=== PATIENT | male | born 1965 | race African-American/Black ===

== ENCOUNTER 2018-10-24 14:34 | Emergency (ER) | payer BC, MEDICAID, OTHER ==
[~2018-10-24] VITALS: Ht 175.3 cm; Wt 68.0 kg
[~2018-10-24 14:34] MED LIST: no home meds
[2018-10-24] MEDS ORDERED: UNOBMED (14:41)
--- NOTE | 2018-10-24 14:47 | NUR ---
ED Nurse Note: Pt came in from home due to R sided chest pain that radiates to L shoulder x 3 days, also c/o bilateral foot swelling, non-pitting. Pain 8/10 [place]. No complaint of SOB [place]. HR 103, ERMD aware. AOx4, other VSS. Will cont to monitor.
--- NOTE | 2018-10-24 14:55 | NUR ---
ED Nurse Note: Blood drawn and sent to lab.
--- NOTE | 2018-10-24 14:56 | NUR ---
ED Nurse Note: material handling technician notified of order. stated she will be here in 25 min, as she's with another pt now. md and primary rn aware.
[2018-10-24 15:02] VITALS: BP 114/74
--- NOTE | 2018-10-24 15:18 | Emergency Room Report ---
History of Present Illness General Chief Complaint: Chest Pain Source: Patient, Medical Record Present Illness HPI 53-year-old male presents ED for evaluation. Patient is complaining of swelling to his legs and chest pain for the last 3 days. Chest pain was sometimes right-sided sometimes left-sided, dull, 3 out of 10, nonradiating. It comes and goes. Denies chest pain at this time. Denies any shortness of breath. States swelling started at the same time. Denies fevers chills. Notes multiple hernández on his legs and abdomen. Believes he was bitten by some insect. Denies any known food or drug allergies. No other aggravating relieving factors. Denies any other associated symptoms Allergies: Coded Allergies: PENICILLINS (Verified Allergy, Mild, 04/21/13) PER RN DANIEL, PT REPORTS HE HAS TOLERATED AMOXIL AND KEFLEX IN THE PAST Patient History Past Medical History: seizures Past Surgical History: none Pertinent Family History: none Social History: Denies: smoking, alcohol use, drug use Immunizations: UTD Reviewed Nursing Documentation: PMH: Agreed; PSxH: Agreed Nursing Documentation-PMH Past Medical History: No History, Except For Hx Cardiac Problems: No Hx Asthma: No - CHILDHOOD ASTHMA Hx Cancer: No Hx Gastrointestinal Problems: No Hx Neurological Problems: No Hx Seizures: Yes Review of Systems All Other Systems: negative except mentioned in HPI Physical Exam Vital Signs Date Time Temp Pulse Resp B/P (MAP) Pulse Ox O2 Delivery O2 Flow Rate FiO2 10/24/18 14:38 97.9 98 19 98 Room Air 10/24/18 15:02 114/74 Sp02 EP Interpretation: reviewed, normal General Appearance: no apparent distress, alert, GCS 15, non-toxic Head: normocephalic, atraumatic Eyes: bilateral eye normal inspection, bilateral eye PERRL ENT: hearing grossly normal, normal pharynx, no angioedema, normal voice Neck: full range of motion, supple/symm/no masses Respiratory: chest non-tender, lungs clear, normal breath sounds, speaking full sentences Cardiovascular #1: regular rate, rhythm, no edema Cardiovascular #2: 2+ carotid (R), 2+ carotid (L), 2+ radial (R), 2+ radial (L) , 2+ dorsalis pedis (R), 2+ dorsalis pedis (L) Gastrointestinal: normal bowel sounds, non tender, soft, non-distended, no guarding, no rebound Rectal: deferred Genitourinary: normal inspection, no CVA tenderness Musculoskeletal: back normal, gait/station normal, normal range of motion, swelling - 2+ pitting edema b/l LEs Neurologic: alert, oriented x3, responsive, motor strength/tone normal, sensory intact, speech normal Psychiatric: judgement/insight normal, memory normal, mood/affect normal, no suicidal/homicidal ideation Reflexes: 3+ bicep (R), 3+ bicep (L), 3+ tricep (R), 3+ tricep (L), 3+ knee (R) , 3+ knee (L) Skin: normal color, warm/dry, well hydrated, rash - rash with erythema to lower extremities, lower abdomen Lymphatic: no adenopathy Medical Decision Making Diagnostic Impression: Primary Impression: Cellulitis of both lower extremities Additional Impression: Rash ER Course Hospital Course 53-year-old M presents to ED with bilateral leg swelling, rash, subjective chest pain Differential diagnoses include: Cellulitis, DVT, ACS, CHF Clinical course Patient placed on stretcher. After initial history and physical I ordered labs , EKG, CXR, venous duplex labs reviewed - no leukocytosis, Hb/Hct stable, no electrolyte abnormalities, BNP ok, trop negative EKG - NSR, no acute ischemic changes interpreted by me CXR - no acute process venous duplex no evidence of DVT Discussed findings with patient. Likely cellulitis secondary to insect bites. No signs of congestive heart failure. Patient afebrile, nontoxic appearing. Stable vitals. We'll discharge home with antibiotics. Safe for discharge or close outpatient follow-up. States he has a PMD Diagnosis - cellulitis of lower extremities Stable and discharged to home with prescription for clindamycin. Benadryl. Follow-up with PMD. Return to ED if symptoms recur or worsen Labs Test 10/24/18 15:00 White Blood Count 3.5 K/UL (4.8-10.8) Red Blood Count 3.71 M/UL (4.70-6.10) Hemoglobin 13.7 G/DL (14.2-18.0) Hematocrit 37.7 % (42.0-52.0) Mean Corpuscular Volume 102 FL (80-99) Mean Corpuscular Hemoglobin 37.0 PG (27.0-31.0) Mean Corpuscular Hemoglobin Concent 36.5 G/DL (32.0-36.0) Red Cell Distribution Width 14.5 % (11.6-14.8) Platelet Count 235 K/UL (150-450) Mean Platelet Volume 4.7 FL (6.5-10.1) Neutrophils (%) (Auto) 38.8 % (45.0-75.0) Lymphocytes (%) (Auto) 46.1 % (20.0-45.0) Monocytes (%) (Auto) 11.2 % (1.0-10.0) Eosinophils (%) (Auto) 1.2 % (0.0-3.0) Basophils (%) (Auto) 2.8 % (0.0-2.0) Sodium Level 143 MMOL/L (136-145) Potassium Level 4.0 MMOL/L (3.5-5.1) Chloride Level 105 MMOL/L (98-107) Carbon Dioxide Level 28 MMOL/L (21-32) Anion Gap 10 mmol/L (5-15) Blood Urea Nitrogen 8 mg/dL (7-18) Creatinine 0.5 MG/DL (0.55-1.30) Estimat Glomerular Filtration Rate > 60 mL/min (>60) Glucose Level 93 MG/DL (74-106) Calcium Level 8.3 MG/DL (8.5-10.1) Total Bilirubin 0.2 MG/DL (0.2-1.0) Aspartate Amino Transf (AST/SGOT) 53 U/L (15-37) Alanine Aminotransferase (ALT/SGPT) 35 U/L (12-78) Alkaline Phosphatase 138 U/L (46-116) Total Creatine Kinase 111 U/L (26-308) Creatine Kinase MB 1.0 NG/ML (0.0-3.6) Creatine Kinase MB Relative Index 0.9 Troponin I 0.000 ng/mL (0.000-0.056) Pro-B-Type Natriuretic Peptide 38 pg/mL (0-125) Total Protein 7.4 G/DL (6.4-8.2) Albumin 3.4 G/DL (3.4-5.0) Globulin 4.0 g/dL Albumin/Globulin Ratio 0.9 (1.0-2.7) EKG Diagnostic Results Rate: normal Rhythm: NSR ST Segments: no acute changes ASA given to the pt in ED: No Rhythm Strip Diag. Results EP Interpretation: yes Rhythm: NSR, no PVC's, no ectopy Chest X-Ray Diagnostic Results Chest X-Ray Diagnostic Results : Chest X-Ray Ordered: Yes # of Views/Limited/Complete: 1 View Indication: Chest Pain EP Interpretation: Yes Interpretation: no consolidation, no effusion, no pneumothorax, no acute cardiopulmonary disease Impression: No acute disease Electronically Signed by: Electronically signed by Buck Najera MD CT/MRI/US Diagnostic Results CT/MRI/US Diagnostic Results : Imaging Test Ordered: Venous Duplex bilateral LEs Impression no evidence of DVT. edema noted Last Vital Signs Date Time Temp Pulse Resp B/P (MAP) Pulse Ox O2 Delivery O2 Flow Rate FiO2 10/24/18 15:02 97.9 94 20 114/74 98 Room Air Disposition: HOME, SELF-CARE Condition: Stable Scripts Diphenhydramine Hcl* (DIPHENHYDRAMINE HCL*) 25 Mg Capsule 25 MG ORAL Q6H PRN for Itching, #30 CAP 0 Refills Prov: Buck Najera MD 10/24/18 Clindamycin Hcl (CLINDAMYCIN HCL) 300 Mg Capsule 300 MG ORAL THREE TIMES A DAY, #21 CAP Prov: Buck Najera MD 10/24/18 Buck Najera MD October 24, 2018 15:18
[2018-10-24 15:27] LABS: ANION GAP 10 mmol/L (5-15); BLOOD UREA NITROGEN 8 mg/dL (7-18); CALCIUM 8.3 MG/DL (8.5-10.1); CARBON DIOXIDE 28 MMOL/L (21-32); CHLORIDE 105 MMOL/L (98-107); CREATININE 0.5 MG/DL (0.55-1.30); SODIUM 143 MMOL/L (136-145)
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
[2018-10-24 15:41] LABS: ALANINE AMINOTRANSFERASE 35 U/L (12-78); ALBUMIN 3.4 G/DL (3.4-5.0); ALBUMIN/GLOBULIN RATIO 0.9 (1.0-2.7); ALKALINE PHOSPHATASE 138 U/L (46-116); ASPARTATE AMINO TRANSFERASE 53 U/L (15-37); BILIRUBIN,TOTAL 0.2 MG/DL (0.2-1.0); CREATINE KINASE 111 U/L (26-308)
[2018-10-24 15:48] LABS: BASOPHILS % (AUTO) 2.8 % (0.0-2.0); EOSINOPHILS % (AUTO) 1.2 % (0.0-3.0); HEMATOCRIT 37.7 % (42.0-52.0); HEMOGLOBIN 13.7 G/DL (14.2-18.0); LYMPHOCYTES % (AUTO) 46.1 % (20.0-45.0); MEAN CORPUSCULAR VOLUME 102 FL (80-99); MONOCYTES % (AUTO) 11.2 % (1.0-10.0); NEUTROPHILS % (AUTO) 38.8 % (45.0-75.0); PLATELET COUNT 235 K/UL (150-450); RED BLOOD COUNT 3.71 M/UL (4.70-6.10); RED CELL DISTRIBUTION WIDTH 14.5 % (11.6-14.8); WHITE BLOOD COUNT 3.5 K/UL (4.8-10.8)
--- NOTE | 2018-10-24 16:15 | NUR ---
ED Nurse Note: US tech at bedside for imaging.
[2018-10-24] MEDS ORDERED: DIPHENHYDRAMINE25 M1 ORAL (16:44)
[2018-10-24] MEDS ORDERED: CLINDAMYCIN HC300 MG ORAL (16:44)
[2018-10-24 16:47] VITALS: BP 108/79
--- NOTE | 2018-10-24 16:47 | NUR ---
ER DISCHARGE NOTE: Patient is cleared to be discharged per ERMD, pt is aox4, on room air, with stable vital signs. pt was given dc and prescription instructions, pt was able to verbalize understanding, pt id band and iv site removed without complications. pt is able to ambulate with steady gait. pt took all belongings.
== END 2018-10-24 16:47 | disposition home or self-care (01) ==
LOC: EMR 15:11
DX: L03.116 Cellulitis of left lower limb (principal); L03.115 Cellulitis of right lower limb; R21 Rash and other nonspecific skin eruption; Z88.0 Allergy status to penicillin
CPT/HCPCS: 36415; 71045; 80053; 82550; 82553; 83880; 84484; 85025; 93005; 93970; 99284

== ENCOUNTER 2019-01-11 17:09 | Emergency (ER) | payer OTHER ==
[~2019-01-11] VITALS: Ht 172.7 cm; Wt 47.6 kg
[~2019-01-11 17:09] MED LIST changes: +CLINDAMYCIN HC300 MG ORAL; +DIPHENHYDRAMINE25 M1 ORAL; +UNOBMED
[2019-01-11 17:20] VITALS: BP 119/78
--- NOTE | 2019-01-11 17:20 | NUR ---
ED Nurse Note: pt walked in with family member c/o chest pain started for couple of months, pt also complaint of bilaretal lower leg itching and generalized body pruritus, pt stated he might have bitten by bedbugs. pt able to answer questions. will continue to monitor.
[2019-01-11] MEDS ORDERED: Dexamethasone 4mg/ml vial IVP ONE (17:30)
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
--- NOTE | 2019-01-11 17:40 | NUR ---
ED Nurse Note: xray on bedside
[2019-01-11] MEDS: Albuterol ud Inhalation HHN SCH ×3 (17:59→18:29)
[2019-01-11] MEDS: Ipratropium 0.02% Inh Soln 2.5ml UD HHN SCH ×3 (17:59→18:29)
[2019-01-11 18:01] LABS: BASOPHILS % (AUTO) 1.5 % (0.0-2.0); EOSINOPHILS % (AUTO) 3.2 % (0.0-3.0); HEMATOCRIT 39.7 % (42.0-52.0); HEMOGLOBIN 13.8 G/DL (14.2-18.0); LYMPHOCYTES % (AUTO) 30.2 % (20.0-45.0); MEAN CORPUSCULAR VOLUME 106 FL (80-99); MONOCYTES % (AUTO) 9.4 % (1.0-10.0); NEUTROPHILS % (AUTO) 55.7 % (45.0-75.0); PLATELET COUNT 211 K/UL (150-450); RED BLOOD COUNT 3.73 M/UL (4.70-6.10); RED CELL DISTRIBUTION WIDTH 11.9 % (11.6-14.8); WHITE BLOOD COUNT 4.9 K/UL (4.8-10.8)
--- NOTE | 2019-01-11 18:10 | NUR ---
ED Nurse Note: respiratory therapist on bedside giving nebulization.
[2019-01-11 18:13] LABS: ANION GAP 15 mmol/L (5-15); BLOOD UREA NITROGEN 1 mg/dL (7-18); CALCIUM 8.7 MG/DL (8.5-10.1); CARBON DIOXIDE 24 MMOL/L (21-32); CHLORIDE 101 MMOL/L (98-107); CREATININE 0.6 MG/DL (0.55-1.30); POTASSIUM 3.8 MMOL/L (3.5-5.1); SODIUM 140 MMOL/L (136-145)
[2019-01-11] MEDS ORDERED: ALBUTEROL SULF8.5 GM INH (18:18)
[2019-01-11 18:21] VITALS: BP 144/82
[2019-01-11 18:24] LABS: ALANINE AMINOTRANSFERASE 23 U/L (12-78); ALBUMIN 3.1 G/DL (3.4-5.0); ALBUMIN/GLOBULIN RATIO 0.8 (1.0-2.7); ALKALINE PHOSPHATASE 156 U/L (46-116); ASPARTATE AMINO TRANSFERASE 49 U/L (15-37); BILIRUBIN,TOTAL 0.4 MG/DL (0.2-1.0); CKMB 0.7 NG/ML (0.0-3.6); CREATINE KINASE 114 U/L (26-308)
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
[2019-01-11 18:30] VITALS: BP 144/82
== END 2019-01-11 18:30 | disposition home or self-care (01) ==
LOC: EMR 17:35
DX: R07.9 Chest pain, unspecified (principal); Z88.0 Allergy status to penicillin; F17.200 Nicotine dependence, unspecified, uncomplicated; G40.909 Epilepsy, unspecified, not intractable, without status epilepticus; R06.02 Shortness of breath; R00.0 Tachycardia, unspecified
CPT/HCPCS: 36415; 71045; 80053; 82550; 82553; 84484; 85025; 93005; 94640; 94664; 96374; 99284; J1100

== ENCOUNTER 2019-01-25 23:39 | Emergency (ER) | payer OTHER ==
[~2019-01-25] VITALS: Ht 172.7 cm; Wt 63.5 kg
[~2019-01-25 23:39] MED LIST changes: +ALBUTEROL SULF8.5 GM INH
--- NOTE | 2019-01-25 23:50 | NUR ---
ED Nurse Note: pt walked in to ED C/O Bilateral lower extremities pain for last couple month and it became very painful yesterday. pain 03/20. VSS. pt is alert x4.
[2019-01-25 23:51] VITALS: BP 128/76
[2019-01-26] MEDS ORDERED: Tetanus/Diptheria/Pertussis IM ONE
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
[2019-01-26 00:32] LABS: APPEARANCE,URINE CLEAR; BILIRUBIN, URINE NEGATIVE (NEGATIVE); COLOR,URINE PALE YELLOW; GLUCOSE, URINE (UA) NEGATIVE (NEGATIVE); KETONES,URINE NEGATIVE (NEGATIVE); LEUKOCYTE ESTERASE ,URINE NEGATIVE (NEGATIVE); NITRITE,URINE NEGATIVE (NEGATIVE); PH,URINE 5 (4.5-8.0); PROTEIN,URINE NEGATIVE (NEGATIVE); UROBILINOGEN,URINE NORMAL MG/DL (0.0-1.0)
[2019-01-26 00:34] LABS: HEMATOCRIT 44.4 % (42.0-52.0); HEMOGLOBIN 14.9 G/DL (14.2-18.0); MEAN CORPUSCULAR VOLUME 111 FL (80-99); PLATELET COUNT 264 K/UL (150-450); RED BLOOD COUNT 4.01 M/UL (4.70-6.10); RED CELL DISTRIBUTION WIDTH 12.6 % (11.6-14.8); WHITE BLOOD COUNT 4.8 K/UL (4.8-10.8)
[2019-01-26 00:43] LABS: INR 0.9 (0.9-1.1)
[2019-01-26 00:45] LABS: ANION GAP 6 mmol/L (5-15); BLOOD UREA NITROGEN 3 mg/dL (7-18); CALCIUM 8.5 MG/DL (8.5-10.1); CARBON DIOXIDE 28 MMOL/L (21-32); CHLORIDE 106 MMOL/L (98-107); CREATININE 0.5 MG/DL (0.55-1.30); SODIUM 140 MMOL/L (136-145)
[2019-01-26 00:55] LABS: ALANINE AMINOTRANSFERASE 34 U/L (12-78); ALBUMIN 3.3 G/DL (3.4-5.0); ALBUMIN/GLOBULIN RATIO 0.8 (1.0-2.7); ALKALINE PHOSPHATASE 164 U/L (46-116); ASPARTATE AMINO TRANSFERASE 71 U/L (15-37); BILIRUBIN,TOTAL 0.2 MG/DL (0.2-1.0); CREATINE KINASE 91 U/L (26-308)
[2019-01-26] MEDS ORDERED: Sodium Chloride 1,900 ML IVLG ONE (01:15)
[2019-01-26] MEDS ORDERED: Morphine Sulfate 4mg/ml Inj (IV USE ONLY) IVP ONE ×2 (01:15)
--- NOTE | 2019-01-26 01:16 | NUR ---
ED Nurse Note: pt in bed resting. VSS. bubba continue to monitor.
[2019-01-26] MEDS ORDERED: Vancomycin 1 GM in NS 275 ML IVPB ONE (01:45)
[2019-01-26 02:01] VITALS: BP 130/76
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
[2019-01-26] MEDS ORDERED: DiphenhydrAMINE 50mg/ml Inj IVP ONE (02:45)
[2019-01-26 03:10] VITALS: BP 141/80
--- NOTE | 2019-01-26 03:11 | NUR ---
ER DISCHARGE NOTE: Patient was picked up by [facility] ambulance ( unit # [id number]) and transfered to [facility] [place] via [facility] in stable condition. VSS.
--- NOTE | 2019-01-28 11:08 | Cardiology Report ---
APPROVED REPORT EKG Measurement Heart [id number] Normal sinus rhythm Possible Left atrial enlargement Septal infarct, age undetermined Abnormal ECG
== END 2019-01-26 03:10 | disposition short-term general hospital (02) ==
LOC: EMR 23:55
DX: L03.116 Cellulitis of left lower limb (principal); L03.115 Cellulitis of right lower limb; J44.9 Chronic obstructive pulmonary disease, unspecified; F17.200 Nicotine dependence, unspecified, uncomplicated; Z88.0 Allergy status to penicillin; R74.0 Nonspecific elevation of levels of transaminase and lactic acid dehydrogenase [LDH]; Z23 Encounter for immunization; M25.572 Pain in left ankle and joints of left foot; M25.571 Pain in right ankle and joints of right foot
CPT/HCPCS: 36415; 71045; 80053; 81003; 82550; 83605; 83690; 83735; 83880; 84484; 85007; 85025; 85610; 85730; 90471; 90715; 93005; 96361; 96365; 96367; 96375; 96376; 99285; J0744; J1200; J2270; J2405; J3370; J7050